=== PATIENT | female | born 1985 | race Caucasian/White ===

== ENCOUNTER 2018-06-24 09:32 | Inpatient (IN) | payer MEDICAID ==
[2018-06-24] MEDS ORDERED: MISOPROSTOL 200 MCG TAB PR PRN (09:45)
[2018-06-24] MEDS ORDERED: LR 1,000 ML IV PRN (09:45)
[2018-06-24] MEDS ORDERED: IBUPROFEN 600 MG TAB PO PRN (09:45)
[2018-06-24] MEDS ORDERED: LIDOCAINE 1% 300 MG/30 ML SDV SC PRN (09:45)
[2018-06-24] MEDS ORDERED: OLIVE OIL 118 ML BTL MISC PRN (09:45)
[2018-06-24] MEDS ORDERED: OXYTOCIN/RINGERS LACTATE 1,000 ML IV PRN (09:45)
[2018-06-24] MEDS ORDERED: EPSOM SALT 454 GM TP PRN (09:45)
[2018-06-24] MEDS ORDERED: BETAMETHASONE IM SYRINGE IM ONE (10:26)
[2018-06-24] MEDS ORDERED: TERBUTALINE SULFATE 1 MG/ML VIAL ONE (11:01)
[2018-06-24] MEDS ORDERED: LIDOCAINE 1% 300 MG/30 ML SDV ONE (11:01)
[2018-06-24] MEDS ORDERED: AMMONIA AROMATIC 1 EACH AMP IH ONE (11:01)
[2018-06-24] MEDS ORDERED: OLIVE OIL 118 ML BTL ONE (11:01)
[2018-06-24] MEDS ORDERED: OXYTOCIN 10 UNIT/ML VIAL ONE (11:01)
[2018-06-24] MEDS ORDERED: MISOPROSTOL 200 MCG TAB ONE (11:02)
--- NOTE | 2018-06-24 11:41 | SOAPPROG ---
SOLM Progress Note Assessment/Plan: Assessment: Plan: Subjective: Neonatology Consult: Ask by OB to speak to this 32 y/o MOC who is 35 weeks with PPROM this am and is undergoing an IOL. FOC was also present. Reviewed expected outcomes and clinical course of an infant born at 35 weeks. All questions answered at this time. ICD10 Worksheet Patient Problems: Problems Problem Status Onset 35 weeks gestation of Acute - ICD10 Problem Qualifiers (1) 35 weeks gestation of
--- NOTE | 2018-06-24 11:43 | GHP ---
[f rep st] HISTORY AND PHYSICAL DATE OF ADMISSION: 06/24/2018 ADMITTING DIAGNOSES: 1. Intrauterine at 35 weeks and 4 days. 2. premature rupture of membranes. HISTORY OF PRESENT ILLNESS: The patient is a 32-year-old, 1, para 0, at 35 weeks and 4 days with an estimated due date 07/25/2018 by last menstrual period 10/18/2017 and consistent with a 9-week ultrasound. The patient presents to Labor and Delivery with complaints of leakage of fluid at 0630 this morning. She noted some pinkish tinged fluid initially and then has been mostly clear. No odor noted. Patient states she is having some menstrual-type cramping, but denies any contractions. Patient states good movement noted last night, but decreased movement this morning. The patient has good care at [facility], and presented in her first trimester. The patient has a history of anxiety and depression, and currently not on any medications. Mood has been stable throughout the . The patient has also history of melanoma, which was excised from the scalp in 2016. Patient has a history of a LEEP about 10 years ago and had a normal cervical length at 20 weeks with estimated weight in 34 percentile. The patient developed anemia of and is on iron. The patient did receive the Tdap 06/11/2018. GBS culture is unknown. PAST OB HISTORY: The patient is a primipara. 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 Cycles are regular. Last menstrual period 10/18/2017. The patient does have a history of abnormal Pap smears, treated with a LEEP about 10 years ago. Subsequent Pap smears have been negative. 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 CURRENT MEDICATIONS: Include vitamins, DHEA, iron supplement. ALLERGIES: No known drug allergies. PAST MEDICAL HISTORY: Remarkable for ovarian cysts, anxiety, depression, melanoma, migraine headaches, ADD and at age 14 to 24 was on Adderall with questionable heart murmur while on Adderall in her 20s. PAST SURGICAL HISTORY: [place] teeth extraction; melanoma removed from the scalp in 2017. FAMILY HISTORY: Father with high cholesterol, also with anxiety. Mother, depression. Maternal grandfather and maternal grandmother, alcohol abuse. Paternal grandmother, cancer of the eye. SOCIAL HISTORY: Patient is and lives with her . 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 She denies any alcohol, tobacco, illicit drug use currently. She does admit to marijuana use in the past, but none 6 months prior to the . REVIEW OF SYSTEMS: 10-point review of systems is negative. Pertinent positives noted in HPI. LABS: First trimester H and H 12.7 and 36.8, platelets 238. Blood type B positive, antibody negative. RPR nonreactive. Rubella immune. Hepatitis B surface antigen negative. HIV negative. Standard panel negative. TSH in 1st trimester 1.2. Urine drug screen, UA, and urine culture all negative. Pap smear, gonorrhea, and chlamydia cultures negative 01/07/2018. AFP negative. Innatal screen negative 12/30/2017. Third trimester H and H, 10.9 and 32.7. One-hour Glucola 103. Varicella immune. GBS culture is unknown. PHYSICAL EXAMINATION: VITAL SIGNS: Stable. Patient is afebrile at 37.1, heart rate 92, respiration 18, blood pressure 111/68. GENERAL: The patient is well-nourished, well-developed female. Alert and oriented x3. No apparent distress. SKIN: Warm, dry without rash. NEURO: Grossly intact. CARDIOVASCULAR: Regular rate and rhythm. LUNGS: Clear to auscultation bilaterally. ABDOMEN: Gravid, soft, nontender. PELVIC: She is grossly ruptured. On sterile vaginal exam, cervix is <1 cm dilated, 25% effaced, and -2 station. No herpetic lesions are noted. EXTREMITIES: Normal to inspection without calf tenderness or edema. Bedside ultrasound reveals cephalic presentation heart tones are Category II with baseline 130 beats per minute. Positive accelerations. Intermittent variable decels x 2 noted initially with contractions. Moderate variability, overall reassuring. On toco, she is handy irregularly ASSESSMENT AND PLAN: The patient is a 32-year-old, 1, para 0, at 35 weeks and 4 days with premature rupture of membranes. 1. Admit to Labor and Delivery. 2. Spoke with Maternal Medicine, Dr. Morales, who agrees with plan for induction at this time with administration of steroids for lung maturity. Agrees to not postpone induction of labor for steroid administration. Will give 1st dose of steroids at this time, and repeat in 24 hours if the patient is still . 3. Patient has unfavorable cervix, will proceed with cervical ripening with misoprostol 25 mcg buccally every 4 hours. 4. Will have the nurse practitioner consult with them about delivery. 5. Group B streptococcus culture collected, results are pending at this time; will start antibiotics when active labor starts. 6. Patient is afebrile at this time; will monitor for signs of infection. 7. Will continue to closely monitor the strip. /[id number]/MODL MTDD
[2018-06-24] MEDS: MISOPROSTOL 25 MCG CAP PO SCH (11:47)
[2018-06-24 12:03] LABS: PLATELET COUNT 168 10^3/uL (150-400)
--- NOTE | 2018-06-24 14:47 | OBPROG ---
Labor Progress Note Assessment/Plan: Assessment: 32 y/o @ 35 4/7 weeks with PPROM Plan: Continue current management Pt received first dose of steroids (BTMZ) and Cytotec 25 mcg buccally at 1130 this am GBS cx pending; once active will start abx for prophylaxis Pt is in tub and states pain 5/10 with ctx's FHTs - Category I tracing, reassuring Pt remains afebrile 06/24/18 14:42 Subjective/Intrapartum Course: 06/24/18 14:47 Pt is in the tub and states pain is 5/10 with ctx's. She is still leaking fluid , slight blood-tinged. movement is good. Objective: 06/24/18 11:40 Patient ABO/Rh B POSITIVE 06/24/18 11:40 - Contraction Pattern Assessment Current Contraction Pattern: Irregular - FHR Assessment Garces FHR (bpm): 130 FHR Pattern Variability: Moderate FHR Category: 1 - AP Antepartum Course: 06/24/18 14:49 h/o anxiety and depression-currently not on any meds and mood stable h/o ADD and ?murmur while on Adderall in her 20's h/o melanoma that was excised from scalp in 2017; placenta to be sent to pathology Pt had LEEP about 10 years ago and subsequent paps have been normal Anemia of and is on iron Oxytocin Orders Assessment - Pre-Induction/Augmentation Assessment Gestational Age: 35 week(s) and 4 day(s) ICD10 Worksheet Patient Problems: Problems Problem Status Onset 35 weeks gestation of Acute
[2018-06-24] MEDS ORDERED: PHENYLEPHRINE HCL 100 MCG/ML SYR ONE (16:07)
[2018-06-24] MEDS ORDERED: BUPIVACAINE 0.25% 10 ML SDV ONE (16:07)
[2018-06-24] MEDS ORDERED: fentaNYL 2MCG/ML/BUP 0.1% RTU 100 ML BAG EP ONE (16:07)
--- NOTE | 2018-06-24 16:13 | PREANESOB ---
Obstetric Pre-Anesthesia Info - General Info : 1 Para: 0 JOSE: 07/25/18 Gestational Age: 35 week(s) and 4 day(s) - Info Status: Full Term - Labor Status Indications for Labor Analgesia: Pain Control Labor Epidural: Proposed Anesthesia Allergies/Adverse Reactions: Allergy/AdvReac Type Severity Reaction Status Date / Time No Known Allergies Allergy Unverified 06/24/18 09:44 Visit Medications: Generic Name Dose Route Start Last Admin Trade Name Gregory PRN Reason Stop Dose Admin Lactated Ringer's 1,000 mls @ 0 mls/hr 06/24/18 09:45 Lr IV 06/25/18 09:44 PRN PRN SEE PROTOCOL CONDITIONS Protocol Per Protocol Oxytocin/Lactated Ringer's 1,000 mls @ 125 mls/hr 06/24/18 09:45 Pitocin 20 Units/Lr (Premix) IV PRN PRN Post bleeding Ibuprofen 600 mg 06/24/18 09:45 Motrin PO ONCE PRN post , pain Lidocaine HCl 300 mg 06/24/18 09:45 Lidocaine Hcl 1% SC 12/21/18 09:44 ONCE PRN episiotomy Magnesium Sulfate 454 gm 06/24/18 09:45 Epsom Salt TP 12/21/18 09:44 Q1H PRN perineal discomfort Misoprostol 800 - 1,000 mcg 06/24/18 09:45 Cytotec TX ONCE PRN Vaginal Atony/Bleeding Misoprostol 25 mcg 06/24/18 10:30 06/24/18 11:47 Cytotec PO 12/21/18 10:29 25 mcg Q4H AIME Administration [place] Oil 118 ml 06/24/18 09:45 Sweet Oil MISC 12/21/18 09:44 ONCE PRN perineal massage Discontinued Medications Generic Name Dose Route Start Last Admin Trade Name Freorlin PRN Reason Stop Dose Admin Ammonia (Aromatic Spirit) Confirm 06/24/18 11:01 Ammonia Aromatic Administered 06/24/18 11:02 Dose 1 each IH .STK-MED ONE Betamethasone Acet/Betameth SodPhos 12 mg 06/24/18 10:26 06/24/18 11:20 Celestone Im Syringe IM 06/24/18 10:27 12 mg ONCE ONE Administration Bupivacaine HCl Confirm 06/24/18 16:07 Sensorcaine 0.25% Sdv Administered 06/24/18 16:08 Dose 10 ml .ROUTE .STK-MED ONE Fentanyl/Bupivacaine HCl Confirm 06/24/18 16:07 Fentanyl/Bupivacaine/Ns 2 Mcg/Ml 0.1% (Premix Administered 06/24/18 16:08 Dose 100 ml EP .STK-MED ONE Lidocaine HCl Confirm 06/24/18 11:01 Lidocaine Hcl 1% Administered 06/24/18 11:02 Dose 300 mg .ROUTE .STK-MED ONE Misoprostol Confirm 06/24/18 11:02 Cytotec Administered 06/24/18 11:03 Dose 1,000 mcg .ROUTE .STK-MED ONE [place] Oil Confirm 06/24/18 11:01 Sweet Oil Administered 06/24/18 11:02 Dose 118 ml .ROUTE .STK-MED ONE Oxytocin Confirm 06/24/18 11:01 Pitocin Administered 06/24/18 11:02 Dose 40 unit .ROUTE .STK-MED ONE Phenylephrine HCl Confirm 06/24/18 16:07 Neosynephrine Administered 06/24/18 16:08 Dose 1,000 mcg .ROUTE .STK-MED ONE Terbutaline Sulfate Confirm 06/24/18 11:01 [place] Administered 06/24/18 11:02 Dose 1 mg .ROUTE .STK-MED ONE - Anesthesia History Response to Local Anesthetics: Normal Anesthesia & Operative History: No Prior Problems - Social History Substance Use/Abuse: Denies - Vital Signs Latest Vital Signs (Nursing): see nursing notes Height/Weight (Nursing): Height 152.4 cm Weight 65.771 kg - Focused Exam Neck exam: FROM Mallampati Score: Class 2 Mouth exam: normal dental/mouth exam Pulmonary: no respiratory distress Cardiovascular: regular rate and rhythym Labs: 06/24/18 11:40 Patient ABO/Rh B POSITIVE 06/24/18 11:40 - Plan Anesthetic Plan: MOSES Consent Signed and on Chart: Yes Patient/Guardian Understands and Agrees to Plan: Yes
[2018-06-24] MEDS ORDERED: PHENYLEPHRINE HCL 100 MCG/ML SYR IVP PRN (16:38)
[2018-06-24] MEDS ORDERED: ONDANSETRON 4 MG/2 ML VIAL IVP PRN (16:38)
[2018-06-24] MEDS ORDERED: NALOXONE HCL 0.4 MG/ML INJ IVP PRN (16:38)
[2018-06-24] MEDS ORDERED: fentaNYL 2MCG/ML/BUP 0.1% RTU 100 ML EP SCH (17:00)
[2018-06-24] MEDS ORDERED: LR 500 ML IV SCH (17:00)
--- NOTE | 2018-06-24 18:42 | OBPROG ---
Labor Progress Note Assessment/Plan: Assessment: 32 y/o @ 35 4/7 weeks with PPROM Plan: Pt is comfortable, s/p epidural SVE: 5/80/+1 Will start Pitocin per protocol since ctx's have spaced out s/p Cytotec buccal x 1 FHTs - Cat II tracing with intermittent variable decels and other decels not associated with ctx's Will cont to closely monitor strip Pt remains afebrile Anticipate 06/24/18 18:39 Subjective/Intrapartum Course: 06/24/18 14:47 Pt is in the tub and states pain is 5/10 with ctx's. She is still leaking fluid , slight blood-tinged. movement is good. 06/24/18 18:42 Pt is comfortable, s/p epidural. Objective: 06/24/18 11:40 Patient ABO/Rh B POSITIVE 06/24/18 11:40 - SVE Dilation (cm): 5 Effacement (%): 80 Station: +1 Membranes: SROM (PPROM) Amniotic Fluid Color: Clear - Contraction Pattern Assessment Current Contraction Pattern: Irregular - FHR Assessment Garces FHR (bpm): 130 FHR Pattern Variability: Moderate FHR Category: 2 (Intermittent variable decels x 20-30 sec; another decel x 2 min with raz 100 bpm not assoc with ctx's) - AP Antepartum Course: 06/24/18 14:49 h/o anxiety and depression-currently not on any meds and mood stable h/o ADD and ?murmur while on Adderall in her 20's h/o melanoma that was excised from scalp in 2017; placenta to be sent to pathology Pt had LEEP about 10 years ago and subsequent paps have been normal Anemia of and is on iron Oxytocin Orders Assessment - Pre-Induction/Augmentation Assessment Gestational Age: 35 week(s) and 4 day(s) ICD10 Worksheet Patient Problems: Problems Problem Status Onset 35 weeks gestation of Acute premature rupture of membranes (PPROM) with onset of labor within 24 hours of rupture in third trimester, antepartum Acute - ICD10 Problem Qualifiers (1) premature rupture of membranes (PPROM) with onset of labor within 24 hours of rupture in third trimester, antepartum (2) 35 weeks gestation of
[2018-06-24] MEDS ORDERED: OXYTOCIN/RINGERS LACTATE 30 UNIT/500 ML BAG IV ONE (19:01)
[2018-06-24] MEDS ORDERED: LR 500 ML IV PRN (19:23)
[2018-06-24] MEDS ORDERED: OXYTOCIN/RINGERS LACTATE 500 ML IV SCH (19:30)
[2018-06-24] MEDS: PENICILLIN G POTASSIUM 2,500,000 UNIT in D5W 150 ML IV SCH (20:32)
[2018-06-24] MEDS ORDERED: oxyCODONE IR 5 MG TAB PO PRN (22:25)
[2018-06-24] MEDS ORDERED: HYDROCORTISONE 0.5% CREAM TP PRN (22:25)
[2018-06-24] MEDS ORDERED: SIMETHICONE 80 MG TAB CHEW PO PRN (22:25)
--- NOTE | 2018-06-24 22:35 | OBDEL ---
Info Type: Vaginal Presentation at Delivery: Vertex (MARY) L&D Analgesia/Anesthesia Type: Epidural GBS+: No (Unknown; results pending) Antibiotic Used for + GBS: Ampicillin (PCN) Intrapartum Medications: Generic Name Dose Route Start Last Admin Trade Name Freq PRN Reason Stop Dose Admin Penicillin G Potassium 2,500, 155 mls @ 155 mls/hr 06/24/18 20:00 06/24/18 20 :32 000 unit/ Dextrose IV 07/24/18 19:59 155 mls Q4H AIME Administration Protocol Oxytocin/Lactated Ringer's 500 mls @ 0 mls/hr 06/24/18 19:30 06/24/18 19:30 Pitocin 30 Units/Lr (Premix) IV 12/21/18 19:29 500 mls CONT AIME Administration Protocol Per Protocol Misoprostol 25 mcg 06/24/18 10:30 06/24/18 11:47 Cytotec PO 12/21/18 10:29 25 mcg Q4H AIME Administration Discontinued Medications Generic Name Dose Route Start Last Admin Trade Name Freq PRN Reason Stop Dose Admin Betamethasone Acet/Betameth SodPhos 12 mg 06/24/18 10:26 06/24/18 11:20 Celestone Im Syringe IM 06/24/18 10:27 12 mg ONCE ONE Administration - Care Provider Iv Technician/RUBBER HEEL AND SOLE PRESS TENDER: Rosa M Worthy - Hospital Course Intrapartum: 06/24/18 14:47 Pt is in the tub and states pain is 5/10 with ctx's. She is still leaking fluid , slight blood-tinged. movement is good 06/24/18 18:42 Pt is comfortable, s/p epidural Indications for Delivery: PPROM Vaginal Delivery - Delivery Provider Delivery Physician/CNM: Amanda Solano - Labor and Delivery Onset of Contractions Date: 06/24/18 Onset of Contractions Time: 13:00 Onset of Contractions Type: Induced Rupture of Membranes Date: 06/24/18 Rupture of Membranes Time: 06:30 Rupture of Membranes Type: Premature (PPROM) Amniotic Fluid Color: Clear Dilation Complete Date: 06/24/18 Dilation Complete Time: 21:00 Placenta Delivery Date: 06/24/18 Placenta Delivery Time: 22:15 Total Hours of Labor: 9 Laceration: Other (Specify) (None; perineum intact) Vaginal Sponge Count Correct: Yes Vaginal Needle Count Correct: Yes Vaginal Sweep Performed: Yes EBL: 250 cc Delivery Events: Nuchal Cord (loose x 2 -slipped over head on perineum) Delivery Comment: A viable female infant in MARY presentation born at 2208 with 8 and 9 Apgars. Delayed cord clamping x 60 sec. Cord blood obtained. Placenta delivered spontaneously intact with 3-vc. No lacs or tears noted; perineum intact. Pt antonia well. No complications. Baby girl is requiring some oxygen at the bedside and monitored by RU[employer] HE[employer] AND [employer]LE PRESS TENDER. - Medications Labor Augmentation/Induction Methods Used: Pitocin, Misoprostol (x 1 dose) Labor Augmentation/Induction Indication: Other (Specify) (PPROM) [place] Data JOSE: 07/25/18 Gestational Age: 35 week(s) and 4 day(s) Gar[place] Delivery Date: 06/24/18 Delivery Time: 22:08 Sex of Infant: Female [place] Weight (gm): 2500 g Score (1 Min): 8 Score (5 Min): 9 ICD10 Worksheet Patient Problems: Problems Problem Status Onset 35 weeks gestation of Acute premature rupture of membranes (PPROM) with onset of labor within 24 hours of rupture in third trimester, antepartum Acute (spontaneous vaginal delivery) Acute - ICD10 Problem Qualifiers (1) premature rupture of membranes (PPROM) with onset of labor within 24 hours of rupture in third trimester, antepartum (2) 35 weeks gestation of (3) (spontaneous vaginal delivery)
[2018-06-25] MEDS: IBUPROFEN 600 MG TAB PO PRN ×4 (04:42→21:47)
[2018-06-25] MEDS: DOCUSATE SODIUM 100 MG CAP PO PRN ×2 (09:17→21:47)
[2018-06-25] MEDS: ACETAMINOPHEN 325 MG TAB PO PRN ×3 (09:18→21:47)
[2018-06-25] MEDS: FERRO-SEQUELS 65 MG TAB.ER PO SCH ×2 (09:18→21:47)
--- NOTE | 2018-06-25 09:30 | OBPP ---
Progress Note Assessment/Plan: Assessment:32 G1now P1 PPD#1 s/p at 35w4d after PPROM doing well. Plan: Continue routine cares. Sari Cannon MD, FACOG [facility] 06/25/18 13:53 Subjective/ Course: Pt doing well. NO concern. Ambulating, voiding, antonia reg diet without concerns. Pain well controlled. and pumping mostly. 06/25/18 14:04 Objective: 06/24/18 11:40 Patient ABO/Rh B POSITIVE 06/24/18 11:40 Temp Pulse Resp BP Pulse Ox 36.9 C 68 16 109/69 97 06/25/18 08:00 06/25/18 08:00 06/25/18 08:00 06/25/18 08:00 06/25/18 08:00 gen - pleasant, NAD CV - RRR chest - CTAB abd - soft, NT, + BS, fundus firm at u-2 ext - trace edema, calves NT Uterine Position/Fundal Height: Umbilicus -2 Uterine Tone: Firm
--- NOTE | 2018-06-25 11:26 | POSTANESTH ---
Post Anesthetic Evaluation Cardiovascular Status: Normal, Stable, Similar to Pre-Op Cond Respiratory Status: Normal, Stable, Similar to Pre-op Cond. Level of Consciousness/Mental Status: Can Participate in Eval, Alert and Oriented Pain Control: Adequate, Prn Tx Ordered Nausea/Vomiting Control: Adequate, Prn Tx Ordered Complications Possibly Related to Anesthesia: None Noted Notes: Pt seen and examined. Block has completely resolved, no apparent ill effects. Able to ambulate. Back site is c/d/i, no e/e/e. No n/v/itch/HOPE.
[2018-06-26] MEDS: ACETAMINOPHEN 325 MG TAB PO PRN (04:44)
[2018-06-26] MEDS: IBUPROFEN 600 MG TAB PO PRN (04:44)
[2018-06-26 08:53] VITALS: BP 97/68
[2018-06-26] MEDS: DOCUSATE SODIUM 100 MG CAP PO PRN (10:12)
[2018-06-26] MEDS: FERRO-SEQUELS 65 MG TAB.ER PO SCH (10:12)
--- NOTE | 2018-06-26 10:28 | OBPP ---
Progress Note Assessment/Plan: Assessment: 32 y/o PPD #2 s/p after PPROM @ 35 weeks doing well. Plan: D/c to border today with Rx Ibuprofen and Iron supplement. support with baby in NICU and routine PPC. RTO 3 and 6 weeks for mood and PP check. Call for fever, heavy vaginal bleeding, s/sx's mastitis or other concerns. 06/26/18 10:27 Subjective/ Course: Pt doing well. NO concern. Ambulating, voiding, antonia reg diet without concerns. Pain well controlled. and pumping mostly. 06/25/18 14:04 06/26/18 10:25 Pt is doing well today. She has min cramping and pain controlled with Ibuprofen and Tylenol. She is ambulating and voiding and has min lochia. She is working on breast feeding and pumping. Baby is stable in the NICU, no O2 requirement. Just learning how to eat. She is ready to be d/c to border today. Objective: 06/25/18 10:30 Patient ABO/Rh B POSITIVE 06/24/18 11:40 Group B Strep DNA NEGATIVE (NEGATIVE) 06/24/18 10:15 Temp Pulse Resp BP Pulse Ox 36.9 C 67 16 97/68 L 98 06/26/18 08:00 06/26/18 08:00 06/26/18 08:00 06/26/18 08:00 06/26/18 08:00 Uterine Position/Fundal Height: Umbilicus -2 Uterine Tone: Firm Physical Exam - Physical Exam General Appearance: alert, no apparent distress Neck: non-tender, full range of motion, supple Respiratory: chest non-tender, lungs clear, normal breath sounds Cardiac/Chest: regular rate, rhythm Abdomen: normal bowel sounds Extremities: swelling (no), Emiliano's sign (neg)
--- NOTE | 2018-06-26 10:30 | OBGCSDC ---
General Delivery Information - General Info : 1 Para: 0 Abortions: 0 Type: Vaginal L&D Analgesia/Anesthesia Type: Epidural Admission Date: 06/24/18 Labs: Patient ABO/Rh B POSITIVE 06/24/18 11:40 Hct 32.0 % (38.0-47.0) L 06/25/18 10:30 Group B Strep DNA NEGATIVE (NEGATIVE) 06/24/18 10:15 - Hospital Course Antepartum: 06/24/18 14:49 h/o anxiety and depression-currently not on any meds and mood stable h/o ADD and ?murmur while on Adderall in her h/o melanoma that was excised from scalp in 2017; placenta to be sent to pathology Pt had LEEP about 10 years ago and subsequent paps have been normal Anemia of and is on iron Intrapartum: 06/24/18 14:47 Pt is in the tub and states pain is 5/10 with ctx's. She is still leaking fluid , slight blood-tinged. movement is good 06/24/18 18:42 Pt is comfortable, s/p epidural : Pt doing well. NO concern. Ambulating, voiding, antonia reg diet without concerns. Pain well controlled. and pumping mostly. 06/25/18 14:04 06/26/18 10:25 Pt is doing well today. She has min cramping and pain controlled with Ibuprofen and Tylenol. She is ambulating and voiding and has min lochia. She is working on breast feeding and pumping. Baby is stable in the NICU, no O2 requirement. Just learning how to eat. She is ready to be d/c to border today. Vaginal - Delivery Provider Delivery Physician/CNM: Amanda Solano - Diagnosis Labor: Induced Rupture of Membranes Type: Premature (PPROM) Amniotic Fluid Color: Clear Laceration: Other (Specify) (None; perineum intact) Delivery Events: Nuchal Cord (loose x 2 -slipped over head on perineum) - Delivery EBL: 250 cc [place] Data JOSE: 07/25/18 Gestational Age: 35 week(s) and 6 day(s) Gar[place] Delivery Date: 06/24/18 Delivery Time: 22:08 Sex of Infant: Female [place] Weight (gm): 2500 g Score (1 Min): 8 Score (5 Min): 9 Discharge Information - Discharge Information Prescriptions: Ibuprofen [Motrin (*)] 600 mg PO Q6HRS PRN #30 tab PRN Reason: Pain, Mild Able To Take Po Iron/Vit C/Docusate [[place]-Sequels 65 mg (*)] 1 each PO BID #60 tab.er Condition: Good Instruction/Follow Up: Two Weeks, Six Weeks
[2018-06-26] MEDS: MISOPROSTOL 25 MCG CAP PO SCH (10:32)
[2018-06-26] MEDS: PENICILLIN G POTASSIUM 2,500,000 UNIT in D5W 150 ML IV SCH (10:33)
== END 2018-06-26 16:00 | disposition home or self-care (01) | DRG 560 ==
LOC: FLD 09:32 → OBSVTOIN 09:46 → FOB 06-25 01:34
PROVIDERS: ADMIT Obstetrics & Gynecology; ATTEND Obstetrics & Gynecology
DX: O42.913 Preterm premature rupture of membranes, unspecified as to length of time between rupture and onset of labor, third trimester (principal); O69.81X0 Labor and delivery complicated by cord around neck, without compression, not applicable or unspecified; O99.344 Other mental disorders complicating childbirth; Z37.0 Single live birth; Z3A.35 35 weeks gestation of pregnancy
CPT/HCPCS: J0702; J2370; J2540; J2590; J3105

== ENCOUNTER → 2018-08-13 | Outpatient (CLI) | payer OTHER | LOC: FIMAGING 14:44 | PROVIDERS: ATTEND Obstetrics & Gynecology | DX: N63.10 Unspecified lump in the right breast, unspecified quadrant (principal); N64.59 Other signs and symptoms in breast ==